=== PATIENT | female | born 1975 | race Two or more races ===

== ENCOUNTER 2025-02-18 13:58 | Outpatient (AMB) | payer MEDICAID, SELFPAY ==
[2025-02-18 14:24] VITALS: BP 144/89; PULSE 88; RESP 18; TEMP 36.6; O2SAT 95; BMI 24.8
--- NOTE | 2025-02-18 14:24 | PD.ORTHCLVIS ---
Vital signs 02/18/25 14:24 Height 1.52 m Height Method Stated Weight 57.805 kg Weight Measurement Method Standing Scale BMI 24.8 BP 144/89 H Blood Pressure Source Automatic Cuff Blood Pressure Location Left Upper Arm Position Sitting Respiration 18 Pulse 88 Pulse Source Monitor Temp 97.8 F Temp Source Temporal Artery Scan Pulse Oximetry (%) 95 Oxygen Delivery Method Room Air Med/Allergies Allergies & Medications Allergies No Known Allergies Allergy (Verified 02/18/25 14:25) Medication Reconciliation No Known Home Medications 02/18/25 [History Confirmed 02/18/25] Exam Exam Breathing is nonlabored. Patient has a normal mood and affect. Bilateral extremities were evaluated and demonstrates sensation intact to light touch. Palpable pedal pulses are present. No significant edema is present. Bilateral hips were examined. The patient has no pain with log roll of the hips. Internal rotation to 30 degrees and external rotation to 30 degrees is painless. Negative FADIR. Left knee was examined today. The left knee is in reasonable alignment. Range of motion from 0-120 degrees. Knee is stable to varus and valgus as well as AP translation with <5mm. Patient has a negative McMurrays. There is no pain with patellofemoral compression and no crepitus noted. The knee is nontender to palpation. The right knee was also examined. The right knee is in varus alignment. Range of motion from 0-115 degrees. Knee is stable to varus and valgus as well as AP translation with <5mm. Patient has a negative McMurrays. There is no pain with patellofemoral compression and no crepitus noted. The knee is tender to palpation medially. I would like to get weightbearing x-rays Assessment and Plan Problem List (1) Arthritis of right knee: Status: Acute Plan: Patient is a 49-year-old female with right knee pain and right knee arthritis. 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 She had to get multiple irrigation debridements done arthroscopically. She reports there is some limited range of motion of her knee. She has tried physical therapy I would like to get weightbearing x-rays to better evaluate her knee. We will likely treat her nonoperatively Office Procedures GNS Level of Care Nursing/Assessment Patient Status: Initial/New Patient Nursing Assessment/Reassesment: Medication Reconciliation, Update PMH in EMR and Vital Signs Coordination of Care: Complex Care and Chronic Disease 1-5, Education Complex Pt/Fam, Consent,records obtained, informed consent, 1 Ins Authorization, Lab and Imaging orders, Results/Orders obtained and Staff clarify orders New Patient Charge New Patient Point Assignment: 1124 New Patient Point Charge: WILDLIFE REMOVAL SPECIALIST Level 4 ([id number]) MA Intake Visit Data Collection New Patient or Established: New Patient (never been to [facility]) Reason for Visit:: RIGHT KNEE PAIN Seen by Clinical Staff ONLY (RN/MA): No Correspondence Section Supervisor Required: Yes PCP or OBGYN visit in last 3 months: Yes Hx Now: No Do You Feel Safe at Home: Yes Authorities Contacted: N/A Questionairres Past Medical History Past Medical History Have you ever been diagnosed with any of the following: Respiratory Problems Smoking: No Smoking Exposure: No Surgical History Total Knee Replacement: Yes (DR GARCIA-RIGHT KNEE 2023) Subjective Visit Visit for: new patient and knee Immunization / Flu Flu Vaccine in the Last 12 Months: No Date of most recent flu vaccination: 02/18/25 Flu Vaccine Exclusion Criteria: Refused by Patient History of Present Illness Chief complaint: Right knee pain Date of injury / onset of symptoms: 1 YEAR Patient is a 49-year-old female with right knee pain. 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 Its mostly operated on including multiple arthroscopic washouts. She reports that she is doing well but has right knee pain. She reports she has limited motion. Pain Pain level (0-10): 6 Pain duration: ALL DAY Pain location: anterior and posterior Pain quality: sharp Pain timing: night and increases with activity Associated signs & symptoms: none Ambulatory data Ambulatory device: none Treatments Improvement with previous injections: No Improvement with PT: No Improvement with NSAIDS: no Review of Systems Review of Systems: All systems negative unless otherwise noted in HPI.
--- NOTE | 2025-02-18 14:38 | XR_ITS ---
Examination: Bilateral AP knees single view PA lateral axial right knee 3 views TECHNIQUE: Bilateral AP knees standing single view Standing PA flexion right knee, standing lateral right knee, axial right knee 3 views total 4 views Date and time: February 18, 2025 1444 hours INDICATIONS: Right knee pain post knee surgery one year ago. FINDINGS: Moderate osteopenia Moderate narrowing medial joint space right knee Moderate knee effusion No fracture Mild right patellar subluxation, chronic, 5 mm No significant joint narrowing left knee IMPRESSION: Moderate narrowing medial joint space right knee Moderate knee effusion
== END 2025-02-18 14:40 | disposition home or self-care (01) ==
PROVIDERS: PCP Family Medicine; Referring Provider Family Medicine; Supervising Provider Orthopaedic Surgery Adult Reconstructive Orthopaedic Surgery; Visit Provider Orthopaedic Surgery Adult Reconstructive Orthopaedic Surgery
DX: M17.11 Unilateral primary osteoarthritis, right knee (principal); M25.561 Pain in right knee; M25.461 Effusion, right knee
CPT/HCPCS: 73564; 99204; G0463

== ENCOUNTER 2025-03-10 09:20 | Outpatient (AMB) | payer MEDICAID, SELFPAY ==
[2025-03-10 10:00] VITALS: BP 151/88; PULSE 76; RESP 16; TEMP 36.8; O2SAT 98; BMI 24.3
--- NOTE | 2025-03-10 10:00 | ORTHONT_ITS ---
Vital signs 03/10/25 10:00 Height 1.52 m Height Method Stated Weight 56.302 kg Weight Measurement Method Standing Scale BMI 24.3 BP 151/88 H Blood Pressure Source Automatic Cuff Blood Pressure Location Left Upper Arm Position Sitting Respiration 16 Pulse 76 Pulse Source Monitor Temp 98.2 F Temp Source Temporal Artery Scan Pulse Oximetry (%) 98 Oxygen Delivery Method Room Air Med/Allergies Allergies & Medications Allergies No Known Allergies Allergy (Verified 03/10/25 10:01) Medication Reconciliation diclofenac sodium 1 % topical gel 4 g topical QID #100 grams 03/10/25 [Rx] meloxicam 7.5 mg tablet 7.5 mg PO QDAY #45 tabs 03/10/25 [Rx] Exam Exam Breathing is nonlabored. Patient has a normal mood and affect. Bilateral extremities were evaluated and demonstrates sensation intact to light touch. Palpable pedal pulses are present. No significant edema is present. Bilateral hips were examined. The patient has no pain with log roll of the hips. Internal rotation to 30 degrees and external rotation to 30 degrees is painless. Negative FADIR. Left knee was examined today. The left knee is in reasonable alignment. Range of motion from 0-120 degrees. Knee is stable to varus and valgus as well as AP translation with <5mm. Patient has a negative McMurrays. There is no pain with patellofemoral compression and no crepitus noted. The knee is nontender to palpation. The right knee was also examined. The right knee is in varus alignment. Range of motion from 0-115 degrees. Knee is stable to varus and valgus as well as AP translation with <5mm. Patient has a negative McMurrays. There is no pain with patellofemoral compression and no crepitus noted. The knee is tender to palpation medially. Weightbearing x-rays demonstrate mild arthritis of the right knee Assessment and Plan Problem List (1) Arthritis of right knee: Status: Acute Plan: Patient is a 49-year-old female with right knee pain and right knee arthritis. 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 She had to get multiple irrigation debridements done arthroscopically. She has mild arthritis of the right knee. We recommend continued conservative management. I probably would not do a cortisone injection because of her colchicine history. We have sent her an anti- inflammatory. She is still functioning well Office Procedures GNS Level of Care Nursing/Assessment Patient Status: Established Patient Nursing Assessment/Reassesment: Medication Reconciliation, Update PMH in EMR and Vital Signs Coordination of Care: Complex Care and Chronic Disease 1-5, Education Complex Pt/Fam, Consent,records obtained, informed consent, Results/Orders obtained and Staff clarify orders Established Patient Charge Established Patient Point Assignment: 95 Established Patient Point Charge: EP Level 3 (80-115) MA Intake Visit Data Collection New Patient or Established: Established Patient (seen at [facility] within 3 years) Reason for Visit:: FOLLOW UP RIGHT KNEE XRAY RESULT Seen by Clinical Staff ONLY (RN/MA): No Distribution Sales Representative Required: No PCP or OBGYN visit in last 3 months: Yes Hx Now: No Do You Feel Safe at Home: Yes Authorities Contacted: N/A Questionairres Past Medical History Past Medical History Have you ever been diagnosed with any of the following: Respiratory Problems Smoking: No Smoking Exposure: No Surgical History Total Knee Replacement: Yes (DR GARCIA-RIGHT KNEE 2023) Subjective Visit Visit for: follow up visit and knee (RIGHT KNEE ) Immunization / Flu Flu Vaccine in the Last 12 Months: No Date of most recent flu vaccination: 02/18/25 Flu Vaccine Exclusion Criteria: Refused by Patient History of Present Illness Chief complaint: Right knee pain Date of injury / onset of symptoms: 1 YEAR Patient is a 49-year-old female with right knee pain. 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 Its mostly operated on including multiple arthroscopic washouts. She reports that she is doing well but has right knee pa in. She reports she has limited motion. Personal History Red flag PMH: none Pain Pain level (0-10): 6 Pain duration: 1 YEAR Pain location: anterior Pain quality: sharp, tingling and other (specify) (SWELLING) Pain timing: night and increases with activity Associated signs & symptoms: numbness, weakness and stiffness Ambulatory data Ambulatory device: none Walking distance (minutes): 0 Treatments Number of previous injections: 0 Improvement with previous injections: No Number of Physical Therapy sessions: 10 Improvement with PT: Yes Improvement with NSAIDS: n/a Review of Systems Review of Systems: All systems negative unless otherwise noted in HPI.
== END 2025-03-10 10:16 | disposition home or self-care (01) ==
LOC: HODSRG 09:20
PROVIDERS: PCP Family Medicine; Referring Provider Family Medicine; Supervising Provider Orthopaedic Surgery Adult Reconstructive Orthopaedic Surgery; Visit Provider Orthopaedic Surgery Adult Reconstructive Orthopaedic Surgery
DX: M17.11 Unilateral primary osteoarthritis, right knee (principal); M25.561 Pain in right knee
CPT/HCPCS: 99213; G0463